=== PATIENT | male | born 1985 | race Caucasian/White ===

== ENCOUNTER → 2016-12-27 | Outpatient (CLI) | payer BC ==
[~2016-12-27] MED LIST: ASPI81TA28 PO; MULT-506 PO; TESTPOW4 IM
== END | disposition home or self-care (01) ==
LOC: C.LABBFT 07:47
PROVIDERS: ATTEND Physician Assistant Medical
DX: E34.9 Endocrine disorder, unspecified (principal)

== ENCOUNTER → 2017-07-22 | Outpatient (CLI) | payer BC ==
[~2017-07-22] MED LIST changes: +INDO-24 PO; +ONDA4TAB65 PO; +TEST1INJ2 INJ
--- NOTE | 2017-07-22 14:14 | DIAGNOSTIC IMAGING REPORT ---
CHEST 2 VIEWS ROUTINE CLINICAL HISTORY: R50.9 fever COMPARISON STUDY: 11/13/2012 FINDINGS: The cardiac and mediastinal contours are normal. There is no evidence of focal pulmonary consolidation. There is no evidence of failure. No pleural effusions are visualized.[ IMPRESSION: No active disease in the chest. Electronically signed by: Dimas Cabral M.D. 07/22/2017 2:13 PM Dictated Date/Time: 07/22/2017 2:12 PM
== END | disposition home or self-care (01) ==
LOC: C.RAD1850 13:59
PROVIDERS: ATTEND Nurse Practitioner
DX: R50.9 Fever, unspecified (principal)

== ENCOUNTER → 2017-07-22 | Outpatient (CLI) | payer BC ==
[2017-07-22 17:34] LABS: MONOSPOT NEG (NEG)
[2017-07-22 17:35] LABS: BASO % 0.2 %; BASO ABS # 0.03 K/uL (0-0.2); EOS % 0.4 %; EOS ABS # 0.05 K/uL (0-0.5); HEMOGLOBIN 16.6 g/dL (14.0-18.0); IG# 0.06 K/uL (0.00-0.02); LYMPH % 11.2 %; LYMPH ABS # 1.55 K/uL (1.2-3.4); MEAN CELL VOLUME 96.2 fL (80-100); MEAN CORPUSCULAR HEMOGLOBIN 33.3 pg (25-34); MEAN CORPUSCULAR HGB CONC 34.6 g/dl (32-36); MEAN PLATELET VOLUME 12.1 fL (7.4-10.4); MONO % 8.9 %; MONO ABS # 1.23 K/uL (0.11-0.59); NEUT % 78.9 %; NEUT ABS # 10.89 K/uL (1.4-6.5); PLATELET COUNT 202 K/uL (130-400); RED CELL DISTRIBUTION WIDTH CV 13.7 % (11.5-14.5); RED CELL DISTRIBUTION WIDTH SD 47.9 fL (36.4-46.3); WHITE BLOOD COUNT 13.81 K/uL (4.8-10.8)
[2017-07-22 19:09] LABS: ALBUMIN 4.2 gm/dl (3.4-5.0); BLOOD UREA NITROGEN 9 mg/dl (7-18); CALCIUM 9.5 mg/dl (8.5-10.1); CARBON DIOXIDE 26 mmol/L (21-32); CREATININE 1.36 mg/dl (0.60-1.40); GLUCOSE 109 mg/dl (70-99); POTASSIUM 3.6 mmol/L (3.5-5.1); SODIUM 134 mmol/L (136-145)
[2017-07-22 19:12] LABS: ALKALINE PHOSPHATASE 96 U/L (45-117); ALT/SGPT 76 U/L (12-78); AST/SGOT 28 U/L (15-37); TOTAL PROTEIN 8.8 gm/dl (6.4-8.2)
[2017-07-26 19:52] LABS: MUMPS VIRUS ANTIBODY IGM <1:20
== END | disposition home or self-care (01) ==
LOC: C.LABBFT 13:07
PROVIDERS: ATTEND Nurse Practitioner
DX: J02.9 Acute pharyngitis, unspecified (principal); R50.9 Fever, unspecified; R53.81 Other malaise

== ENCOUNTER 2017-07-26 12:19 | Emergency (ER) | payer BC ==
[~2017-07-26] VITALS: Ht 172.7 cm; Wt 130.0 kg
[~2017-07-26 12:19] MED LIST changes: -INDO-24 PO; -ONDA4TAB65 PO; -TEST1INJ2 INJ
[2017-07-26 12:25] VITALS: Ht 172.7 cm; Wt 130.0 kg
[2017-07-26] MEDS ORDERED: SODIUM CHLORIDE 0.9% 1000ML 1,000 ML IV STA (12:53)
[2017-07-26] MEDS ORDERED: KETOROLAC TROMETHAMINE 30 MG/ML VIAL IV STA (12:53)
[2017-07-26] MEDS ORDERED: ACETAMINOPHEN 500 MG TAB PO STA (12:53)
[2017-07-26] MEDS ORDERED: ONDANSETRON INJ 2 MG/ML 2 ML VIAL IV STA (12:53)
[2017-07-26] MEDS ORDERED: LACTATED RINGER'S 1000ML 1,000 ML IV STA (12:56)
[2017-07-26 13:06] LABS: BASO % 0.2 %; BASO ABS # 0.02 K/uL (0-0.2); EOS % 0.8 %; EOS ABS # 0.07 K/uL (0-0.5); HEMATOCRIT 46.1 % (42-52); HEMOGLOBIN 16.6 g/dL (14.0-18.0); IG# 0.12 K/uL (0.00-0.02); LYMPH % 2.7 %; LYMPH ABS # 0.22 K/uL (1.2-3.4); MEAN CELL VOLUME 94.1 fL (80-100); MEAN CORPUSCULAR HEMOGLOBIN 33.9 pg (25-34); MEAN PLATELET VOLUME 11.2 fL (7.4-10.4); MONO % 3.1 %; MONO ABS # 0.26 K/uL (0.11-0.59); NEUT % 91.7 %; NEUT ABS # 7.58 K/uL (1.4-6.5); PLATELET COUNT 226 K/uL (130-400); WHITE BLOOD COUNT 8.27 K/uL (4.8-10.8)
--- NOTE | 2017-07-26 13:09 | EMERGENCY ROOM VISIT NOTE ---
History Report prepared by Red: Alena Leung Under the Supervision of: Dr. Jose Wen M.D. 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 Positive headache, dizziness, nausea, vomiting, diarrhea, fevers, chills, body aches, and loss of appetite. Negative shortness of breath and leg swelling. He currently rates his pain an 8/10 in severity. He notes the diarrhea has been ongoing for over 24 hours. He states that his whole body hurts and emphasizes that his genitals hurt as well. He notes that he went to see is his PCP four days ago and was diagnosed with a sinus infection. He was prescribed Augmentin. He has taken OTC medications: DayQuil, NightQuil, and Tylenol, though no relief. He has not received his flu shot this season. He normally has low blood pressure, though he notes that his blood pressure has been higher than normal. He notes that he is on testosterone replacement therapy. 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 He denies any leg swelling. Review of Systems See HPI for pertinent positives and negatives. A total of ten systems were reviewed and were otherwise negative. Past Medical & Surgical Medical Problems: (1) laila removal (1990) (2) Long-term current use of testosterone replacement therapy Surgical Problems: (1) Hx of appendectomy Family History Cancer Diabetes mellitus Heart disease Hypertension Social History Smoking Status: Never Smoker Smokeless Tobacco Use: No Alcohol Use: occasionally (1/month) Drug Use: none Marital Status: Housing Status: lives with significant other Occupation Status: employed Current/Historical Medications Scheduled Ondansetron Hcl (Zofran), 4 MG PO PRN Allergies Coded Allergies: No Known Allergies (Unverified , 11/13/12) Physical Exam Vital Signs Date Time Temp Pulse Resp B/P (MAP) Pulse Ox O2 Delivery O2 Flow Rate FiO2 07/26/17 15:47 37.0 110 18 161/89 98 Room Air 07/26/17 14:23 37.7 114 19 161/117 96 Room Air 07/26/17 12:25 37.8 130 20 143/82 96 Room Air Physical Exam GENERAL: Awake, alert, NAD. Obese. Non-toxic HENT: Normocephalic, atraumatic. EYES: Normal conjunctiva. Sclera non-icteric. NECK: Supple. No nuchal rigidity. FROM. RESPIRATORY: CTAB, no rhonchi, wheezing, crackles CARDIAC: Tachycardic and regular rhythm, no MRG ABDOMEN: Soft, NTND, BS+ Small periumbilical surgical scar MSK: No chest wall TTP, no LE edema : Circumcised. No scrotal pain or swelling NEURO: GCS 15, CN 2-12 intact, moves all 4s on command SKIN: No rash or jaundice noted. Trace maceration of the skin in the inguinal folds Medical Decision & Procedures ER Provider Diagnostic Interpretation: Radiology results as stated below per my review and radiologist interpretation: CHEST ONE VIEW PORTABLE CLINICAL HISTORY: Pain, radiating to the abdomen. COMPARISON STUDY: 07/22/2017 FINDINGS: The cardiac and mediastinal contours are normal. There is no evidence of focal pulmonary consolidation. There is no evidence of failure. No pleural effusions are visualized.[ No free intraperitoneal air is visualized. IMPRESSION: No active disease in the chest. Electronically signed by: Dimas Cabral M.D. 07/26/2017 1:29 PM Dictated Date/Time: 07/26/2017 1:28 PM Laboratory Results 07/26/17 12:42 Red Blood Count 4.90, Mean Corpuscular Volume 94.1, Mean Corpuscular Hemoglobin 33.9, Mean Corpuscular Hemoglobin Concent 36.0, Mean Platelet Volume 11.2, Neutrophils (%) (Auto) 91.7, Lymphocytes (%) (Auto) 2.7, Monocytes (%) (Auto) 3.1, Eosinophils (%) (Auto) 0.8, Basophils (%) (Auto) 0.2, Neutrophils # (Auto) 7.58, Lymphocytes # (Auto) 0.22, Monocytes # (Auto) 0.26, Eosinophils # (Auto) 0.07, Basophils # (Auto) 0.02 07/26/17 12:42 Test 07/26/17 12:40 07/26/17 12:42 07/26/17 13:20 Influenza Type A Antigen Neg for Influ A (NEG) Influenza Type B Antigen Neg for Influ B (NEG) White Blood Count 8.27 K/uL (4.8-10.8) Red Blood Count 4.90 M/uL (4.7-6.1) Hemoglobin 16.6 g/dL (14.0-18.0) Hematocrit 46.1 % (42-52) Mean Corpuscular Volume 94.1 fL (80-100) Mean Corpuscular Hemoglobin 33.9 pg (25-34) Mean Corpuscular Hemoglobin Concent 36.0 g/dl (32-36) Platelet Count 226 K/uL (130-400) Mean Platelet Volume 11.2 fL (7.4-10.4) Neutrophils (%) (Auto) 91.7 % Lymphocytes (%) (Auto) 2.7 % Monocytes (%) (Auto) 3.1 % Eosinophils (%) (Auto) 0.8 % Basophils (%) (Auto) 0.2 % Neutrophils # (Auto) 7.58 K/uL (1.4-6.5) Lymphocytes # (Auto) 0.22 K/uL (1.2-3.4) Monocytes # (Auto) 0.26 K/uL (0.11-0.59) Eosinophils # (Auto) 0.07 K/uL (0-0.5) Basophils # (Auto) 0.02 K/uL (0-0.2) RDW Standard Deviation 45.0 fL (36.4-46.3) RDW Coefficient of Variation 13.0 % (11.5-14.5) Immature Granulocyte % (Auto) 1.5 % Immature Granulocyte # (Auto) 0.12 K/uL (0.00-0.02) Anion Gap 6.0 mmol/L (3-11) Est Creatinine Clear Calc Drug Dose 105.7 ml/min Estimated GFR () 82.1 Estimated GFR (Non- 70.9 BUN/Creatinine Ratio 13.8 (10-20) Calcium Level 9.1 mg/dl (8.5-10.1) Total Bilirubin 0.7 mg/dl (0.2-1) Aspartate Amino Transf (AST/SGOT) 138 U/L (15-37) Alanine Aminotransferase (ALT/SGPT) 143 U/L (12-78) Alkaline Phosphatase 76 U/L (45-117) Total Protein 8.2 gm/dl (6.4-8.2) Albumin 3.9 gm/dl (3.4-5.0) Globulin 4.3 gm/dl (2.5-4.0) Albumin/Globulin Ratio 0.9 (0.9-2) Urine Color DK YELLOW Urine Appearance CLEAR (CLEAR) Urine pH 5.5 (4.5-7.5) Urine Specific Emery 1.031 (1.000-1.030) Urine Protein TRACE (NEG) Urine Glucose (UA) NEG (NEG) Urine Ketones TRACE (NEG) Urine Occult Blood NEG (NEG) Urine Nitrite NEG (NEG) Urine Bilirubin NEG (NEG) Urine Urobilinogen NEG (NEG) Urine Leukocyte Esterase NEG (NEG) Urine WBC (Auto) 1-5 /hpf (0-5) Urine RBC (Auto) 0-4 /hpf (0-4) Urine Hyaline Casts (Auto) 1-5 /lpf (0-5) Urine Epithelial Cells (Auto) 5-10 /lpf (0-5) Urine Bacteria (Auto) NEG (NEG) Laboratory results reviewed by me Medications Administered Medications (Trade) Dose Ordered Sig/Kurt Route Start Time Stop Time Status Last Admin Dose Admin Sodium Chloride 1,000 ml @ 999 mls/hr Q1H1M STAT IV 07/26/17 12:53 07/26/17 13:53 DC 07/26/17 13:13 999 MLS/HR Ondansetron HCl (Zofran Inj) 4 mg NOW STAT IV 07/26/17 12:53 07/26/17 12:56 DC 07/26/17 13:13 4 MG Ketorolac Tromethamine (Toradol Inj) 30 mg NOW STAT IV 07/26/17 12:53 07/26/17 12:56 DC 07/26/17 13:13 30 MG Acetaminophen (Tylenol Tab) 1,000 mg NOW STAT PO 07/26/17 12:53 07/26/17 12:56 DC 07/26/17 13:13 1,000 MG Lactated Ringer's 1,000 ml @ 999 mls/hr Q1H1M STAT IV 07/26/17 12:56 07/26/17 13:56 DC 07/26/17 13:12 999 MLS/HR Sodium Chloride 500 ml @ 999 mls/hr Q31M STAT IV 07/26/17 15:01 07/26/17 15:31 DC 07/26/17 15:19 999 MLS/HR ECG Indication: vomiting Rate (beats per minute): 111 Rhythm: sinus tachycardia Findings: nonspecific-ST abn, T-wave inversion (in L3 AVF), other (Normal axis. Normal intervals. ) ED Course 1243: The patient was evaluated in room A3. A complete history and physical exam was performed. 1433: I reassessed the patient at this time. He is resting comfortably. 1530: I reassessed the patient at this time. He is feeling better and resting comfortably. I discussed the results and treatment plan with the patient. I answered all pertaining questions that he had. He expressed understanding and verbalized agreement. The patient will be discharged home. 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 Prior records/ancillary studies reviewed. Triage Nursing notes reviewed. The patient's history was concerning for fever. Differential diagnosis: Etiologies such as viral syndrome, otitis, pharyngitis, pneumonia, influenza, meningitis, urinary tract infection, sepsis, bacteremia, as well as others were entertained. Patient was seen and evaluated the bedside. Patient has had some infectious type symptoms with some overall body aches as well as recent treatment for sinusitis with Augmentin. Patient has complained of some mild nausea. He is hasn't difficulty with tolerating by mouth. Patient did have blood work completed, EKG, chest x-ray, urinalysis. Patient's urinalysis negative for infection. Chest x-ray clear. EKG showed T-wave inversions inferiorly but no acute ischemic changes. Patient's tachycardia improved with fluids as well as medications. Patient states that his nausea had improved and the patient was able tolerate by mouth. Patient flu was negative. Patient did not have an elevated a low white blood cell count. Patient had normal H&H. Patient's kidney function fairly unremarkable. Patient did have mild elevations in his transaminases however no elevations in his bilirubin and does not appear jaundiced. Patient denies any history of transfusions or IV drug abuse. Patient denies any infectious food contacts. He may have some viral form of hepatitis. Patient was told he should follow-up with his primary care physician for repeat blood work and possible outpatient ultrasound. Patient was feeling improved and patient was deemed suitable for outpatient follow-up and treatment. Patient was given strict follow-up, discharge, and return precautions. All questions were answered. Patient was deemed suitable for outpatient follow-up at this time. Patient agreed with the plan of care and was safely discharged home. Medication Reconcilliation Current Medication List: was personally reviewed by me Blood Pressure Screening Patient's blood pressure: Elevated blood pressure Blood pressure disposition: Elevated BP felt to be situational Impression Primary Impression: Influenza-like symptoms Additional Impression: Upper respiratory infection Scribe Attestation The scribe's documentation has been prepared under my direction and personally reviewed by me in its entirety. I confirm that the note above accurately reflects all work, treatment, procedures, and medical decision making performed by me. Departure Information Dispostion Home / Self-Care Prescriptions Ondansetron Hcl (ZOFRAN) 4 Mg Tab 4 MG PO PRN, #12 TAB Prov: Jose Wen M.D. 07/26/17 Referrals Finesse Durand M.D. (PCP) Forms HOME CARE DOCUMENTATION FORM, IMPORTANT VISIT INFORMATION Patient Instructions ED Diet [place], ED Upper Resp Infec No Abx Tx, My [facility] Additional Instructions Please return to the emergency department if you have worsening or recurrent symptoms not amenable to at-home treatment. Please call for a follow-up appointment with her primary care physician. Please take your medications as prescribed. If you have other concerns and/or complaints please feel free to also call your primary care physician's office or return the ED for further evaluation, management, and treatment.n. You may take 600 mg Ibuprofen every 6 hours as needed for pain with food for no more than 2 consecutive days. You may take tylenol 1000 mg every 6 hours as needed for pain. You may take motrin and tylenol separately or at the same time. Take your medications as prescribed. If taking an antibiotic consider taking a probiotic and/or eating yogurt, but at the least, please take with food as it can cause upset stomach. You have been examined and treated today on an emergency basis only. This is not a substitute for, or an effort to provide, complete comprehensive medical care. It is impossible to recognize and treat all injuries or illnesses in a single emergency department visit. It is therefore important that you follow up closely with [facility], your PCP, and/or your specialist(s). Call as soon as possible for an appointment. Thank you for your time and consideration. I look forward to speaking with you again soon. Please don't hesitate to call us if you have any questions. Problem Qualifiers Additional Impression: Upper respiratory infection URI type: unspecified URI Qualified Codes: J06.9 - Acute upper respiratory infection, unspecified
[2017-07-26 13:15] LABS: ALBUMIN 3.9 gm/dl (3.4-5.0); CALCIUM 9.1 mg/dl (8.5-10.1); CREATININE 1.32 mg/dl (0.60-1.40)
[2017-07-26 13:18] LABS: TOTAL PROTEIN 8.2 gm/dl (6.4-8.2)
[2017-07-26 13:20] LABS: INFLUENZA B ANTIGEN Neg for Influ B (NEG)
--- NOTE | 2017-07-26 13:30 | DIAGNOSTIC IMAGING REPORT ---
CHEST ONE VIEW PORTABLE CLINICAL HISTORY: Pain, radiating to the abdomen. COMPARISON STUDY: 07/22/2017 FINDINGS: The cardiac and mediastinal contours are normal. There is no evidence of focal pulmonary consolidation. There is no evidence of failure. No pleural effusions are visualized.[ No free intraperitoneal air is visualized. IMPRESSION: No active disease in the chest. Electronically signed by: Dimas Cabral M.D. 07/26/2017 1:29 PM Dictated Date/Time: 07/26/2017 1:28 PM
[2017-07-26] MEDS ORDERED: SODIUM CHLORIDE 0.9% 500ML 500 ML IV STA (15:01)
[2017-07-26] MEDS ORDERED: ONDA4TAB65 PO (15:23)
[2017-07-26 15:47] VITALS: BP 161/89; PULSE 110; TEMP 37; O2SAT 98
== END 2017-07-26 16:00 | disposition home or self-care (01) ==
LOC: C.EDB 12:20 → C.EDA 16:00
DX: J06.9 Acute upper respiratory infection, unspecified (principal); J11.1 Influenza due to unidentified influenza virus with other respiratory manifestations; R00.0 Tachycardia, unspecified; Z98.890 Other specified postprocedural states; Z80.9 Family history of malignant neoplasm, unspecified; Z83.3 Family history of diabetes mellitus; Z82.49 Family history of ischemic heart disease and other diseases of the circulatory system

== ENCOUNTER → 2017-08-01 | Outpatient (CLI) | payer BC ==
[~2017-08-01] MED LIST changes: -ASPI81TA28 PO; -MULT-506 PO; +ONDA4TAB65 PO; -TESTPOW4 IM
[2017-08-01 12:37] LABS: TOTAL PROTEIN 7.9 gm/dl (6.4-8.2)
== END | disposition home or self-care (01) ==
LOC: C.LABBFT 07:29
PROVIDERS: ATTEND Internal Medicine
DX: R74.8 Abnormal levels of other serum enzymes (principal)

== ENCOUNTER → 2018-02-13 | Outpatient (CLI) | payer BC ==
[~2018-02-13] MED LIST changes: +INDO-24 PO; -ONDA4TAB65 PO; +TEST1INJ2 INJ
[2018-02-13 12:40] LABS: ALBUMIN 4.2 gm/dl (3.4-5.0); ALKALINE PHOSPHATASE 86 U/L (45-117); ALT/SGPT 110 U/L (12-78); AST/SGOT 50 U/L (15-37); BLOOD UREA NITROGEN 17 mg/dl (7-18); CALCIUM 9.3 mg/dl (8.5-10.1); CARBON DIOXIDE 28 mmol/L (21-32); CREATININE 1.35 mg/dl (0.60-1.40); GLUCOSE 181 mg/dl (70-99); POTASSIUM 4.1 mmol/L (3.5-5.1); SODIUM 139 mmol/L (136-145); TOTAL PROTEIN 7.8 gm/dl (6.4-8.2)
== END | disposition home or self-care (01) ==
LOC: C.LABBFT 09:00
PROVIDERS: ATTEND Nurse Practitioner
DX: I10 Essential (primary) hypertension (principal); E34.9 Endocrine disorder, unspecified; R94.5 Abnormal results of liver function studies